=== PATIENT | female | born 1980 | race African-American/Black ===

== ENCOUNTER 2022-01-10 08:33 | Emergency (ER) | payer OTHER ==
[2022-01-10 10:17] LABS: BASOPHIL 0.9 % (0-2); EOSINOPHIL 3.4 % (0-5); HGB 12.9 g/dl (12.5-16.0); LYMPHOCYTE 44.7 % (15-48); MCH 28.4 pg (25.0-31.0); MCHC 31.5 g/dL (32.0-36.0); MCV 90.1 fL (78.0-100.0); MONOCYTE 9.9 % (0-12); MPV 9.7 fL (6.0-9.5); NEUTROPHIL 40.9 % (41-80); NRBC 0; PLT 356 K/uL (150-400); RBC 4.55 M/uL (4.20-5.40); RDW 14.3 % (11.5-14.0); WBC 5.9 K/uL (4.0-10.5)
[2022-01-10 10:34] LABS: BILIRUBIN NEGATIVE (NEGATIVE); BLOOD TRACE-INTACT Ery/uL (NEGATIVE); CLARITY CLEAR (CLEAR); COLOR YELLOW (YELLOW); GLUCOSE (U) NORMAL (NORMAL); LEUKOCYTES NEGATIVE Leu/uL (NEGATIVE); NITRITE NEGATIVE (NEGATIVE); PROTEIN NEGATIVE (NEGATIVE); SPECIFIC GRAVITY 1.025 (1.001-1.030); UROBILINOGEN 0.2 mg/dL (0.2-1.0)
[2022-01-10 10:41] LABS: MUCOUS LARGE; SQUAMOUS EPITHELIAL CELLS 20-50
[2022-01-10 10:43] LABS: ALBUMIN 3.5 g/dL (3.4-5.0); BILIRUBIN - TOTAL 0.1 mg/dL (0.2-1.0); BUN/CREAT RATIO (CALC) 12.5 RATIO; CREATININE 0.88 mg/dL (0.51-0.95); GLOBULIN (CALCULATION) 3.9 g/dL; POTASSIUM 3.8 mmol/L (3.5-5.1); TOTAL PROTEIN 7.4 g/dL (6.4-8.2)
== END 2022-01-10 13:05 | disposition home or self-care (01) ==
LOC: FER 08:33
PROVIDERS: Emergency Medicine
DX: R10.31 Right lower quadrant pain (principal)
CPT/HCPCS: 36415; 80053; 81001; 82150; 83690; 85025; J2270; J2405; Q9967